=== PATIENT | female | born 1985 | race Caucasian/White ===

== ENCOUNTER 2020-03-04 14:45 | Outpatient (CLI) | payer OTHER, SELFPAY ==
--- NOTE | 2020-03-04 14:57 | XRR_ITS ---
PROCEDURE INFORMATION: Exam: XR Temporomandibular Joints, Open and Closed Mouth Exam date and time: 03/04/2020 3:31 PM Age: 34 years old Clinical indication: Other: Otalgia bilateral; Patient HX: HX of scoliosis; Additional info: Otalgia, bilateral bilat pain, more on right, dizziness x 1 month-then nausea TECHNIQUE: Imaging protocol: XR of the bilateral temporomandibular joints, open and closed mouth views. COMPARISON: No relevant prior studies available. FINDINGS: Sinuses: Well aerated. No opacification. Bones/joints: No fracture. There is appropriate excursion of the mandibular condyles with open and closed mouth views. No acute bony abnormalities seen. Soft tissues: Unremarkable. XR/[place] [id number] IMPRESSION: Normal TMJ excursion. Negative for acute bony abnormality
== END 2020-03-04 14:46 | disposition home or self-care (01) ==
LOC: RAD 14:55
PROVIDERS: PCP Nurse Practitioner Family; Visit Provider Otolaryngology
DX: H92.03 Otalgia, bilateral (principal)
CPT/HCPCS: 70330

== ENCOUNTER → 2021-05-06 16:11 | Outpatient (BNVA) | payer OTHER, SELFPAY | PROVIDERS: Visit Provider Emergency Medicine | DX: M25.561 Pain in right knee (principal) | CPT/HCPCS: 73562 ==

== ENCOUNTER → 2024-05-17 09:04 | Outpatient (BNVA) | payer OTHER, SELFPAY | PROVIDERS: PCP Nurse Practitioner Family; Visit Provider Podiatrist Foot & Ankle Surgery | DX: M79.672 Pain in left foot (principal); M76.72 Peroneal tendinitis, left leg | CPT/HCPCS: 73630 ==